=== PATIENT | female | born 1970 | race African-American/Black ===

== ENCOUNTER 2020-12-15 20:20 | Inpatient (IN) | payer BC ==
[2020-12-15] MEDS ORDERED: SODIUM CHLORIDE 1,000 ML ONE (20:45)
[2020-12-15] MEDS ORDERED: morphine CARPU-JECT 4 MG/1 ML DISP.SYRIN IVPUSH ONE (20:45)
[2020-12-15] MEDS ORDERED: ONDANSETRON 4 MG/2 ML VIAL IVPB ONE (20:45)
[2020-12-15] MEDS ORDERED: ONDANSETRON 4 MG/2 ML VIAL ONE (20:55)
[2020-12-15] MEDS ORDERED: morphine SULFATE 4 MG/ML VIAL ONE (20:55)
[2020-12-15 21:31] LABS: ALBUMIN 3.7 g/dl (3.4-5.0); BILIRUBIN,TOTAL 0.6 mg/dl (0.2-1); CALCIUM 10.1 mg/dl (8.5-10); CREATININE 0.8 mg/dl (0.55-1.3); TOT PROT 8.2 g/dl (6.4-8.2)
[2020-12-15] MEDS ORDERED: KCL 10 MEQ IVPB 20 MEQ/200 ML INFUS.BAG IVPB ONE (21:34)
[2020-12-15 21:44] LABS: HEMATOCRIT 30.7 % (32.4-45.2); HEMOGLOBIN 9.5 GM/dl (10.7-15.3); MCH 21.1 pg (25.7-33.7); MCHC 30.8 g/dl (32.0-36.0); MEAN CELL VOLUME 68.5 fl (80-96); MEAN PLT VOLUME 7.8 fl (7.5-11.1); PLATELET COUNT 251 10^3/uL (134-434); RBC 4.49 M/mm3 (3.60-5.2); RDW 15.6 % (11.6-15.6); WHITE BLOOD COUNT 8.5 K/mm3 (4.0-10.8)
[2020-12-15] MEDS: KCL 10 MEQ IVPB 10 MEQ/100 ML INFUS.BAG IVPB SCH ×3 (21:45→23:56)
[2020-12-15 21:46] LABS: ADD RBC MORPHOLOGY YES
[2020-12-15 21:51] LABS: EPITHELIAL CELLS MODERATE /hpf
[2020-12-15 22:23] LABS: ANISOCYTOSIS 1+; PLATELET ESTIMATE ADEQUATE
[2020-12-15 22:27] LABS: LIPASE 113 U/L (73-393)
[2020-12-15] MEDS ORDERED: KCL 10 MEQ IVPB 10 MEQ/100 ML INFUS.BAG IVPB ONE (22:51)
[2020-12-15] MEDS ORDERED: HYDROmorphone HCL CARPU-JECT 1 MG/1 ML DISP.SYRIN IVPUSH ONE (23:40)
[2020-12-15] MEDS ORDERED: HYDROmorphone HCL/PF 1 MG/ML VIAL ONE (23:42)
[2020-12-16] MEDS: ONDANSETRON 4 MG/2 ML VIAL IVPUSH PRN ×2 (03:13→09:31)
[2020-12-16] MEDS: morphine SULFATE 4 MG/ML VIAL IVPUSH PRN ×3 (03:26→20:48)
[2020-12-16 03:55] LABS: BLOOD UREA NITROGEN 17.2 mg/dL (7-18); CALCIUM 8.4 mg/dL (8.5-10.1); CREATININE 0.5 mg/dL (0.55-1.3)
[2020-12-16] MEDS ORDERED: DEXTROSE 5%-0.45% SALINE 1,000 ML IV SCH (06:00)
[2020-12-16 09:13] LABS: ALBUMIN 2.9 g/dl (3.4-5.0); BILIRUBIN,TOTAL 0.4 mg/dl (0.2-1); CALCIUM 8.4 mg/dl (8.5-10); CREATININE 0.5 mg/dl (0.55-1.3); MAGNESIUM 1.7 mg/dL (1.8-2.4); TOT PROT 6.6 g/dl (6.4-8.2)
[2020-12-16 09:17] LABS: BASO % 0.7 % (0-2.0); HEMATOCRIT 29.5 % (32.4-45.2); LYMPH % 11.3 % (8-40); MCH 21.3 pg (25.7-33.7); MCHC 30.5 g/dl (32.0-36.0); MEAN PLT VOLUME 8.2 fl (7.5-11.1); MONO % 9.9 % (3.8-10.2); NEUT % 76.1 % (42.8-82.8); PLATELET COUNT 248 10^3/uL (134-434); RBC 4.22 M/mm3 (3.60-5.2); RDW 15.4 % (11.6-15.6); WHITE BLOOD COUNT 7.9 K/mm3 (4.0-10.8)
[2020-12-16] MEDS ORDERED: MAGNESIUM SULF 50% (8.12 MEQ/2 ML-1 GM VIAL) IVPB ONE (10:08)
[2020-12-16] MEDS ORDERED: KCL 10 MEQ IVPB 10 MEQ/100 ML INFUS.BAG IVPB SCH (11:45)
[2020-12-16] MEDS ORDERED: ROCURONIUM BROMIDE 50 MG/5 ML SYRINGE ONE (11:47)
[2020-12-16] MEDS ORDERED: LIDOCAINE HCL/PF 2% SDV 5ML VIAL ONE (11:47)
[2020-12-16] MEDS ORDERED: PROPOFOL 20 ML ONE (11:47)
[2020-12-16] MEDS ORDERED: MIDAZOLAM HCL 2 MG/2 ML SINGLE DOSE VIAL ONE (11:48)
[2020-12-16] MEDS ORDERED: ONDANSETRON 4 MG/2 ML VIAL IVPUSH PRN ×2 (12:12→15:50)
[2020-12-16] MEDS ORDERED: HYDROmorphone HCL CARPU-JECT 1 MG/1 ML DISP.SYRIN IVPUSH PRN (12:12)
[2020-12-16] MEDS ORDERED: PROMETHAZINE HCL 25 MG/1 ML VIAL IVPUSH PRN (12:12)
[2020-12-16] MEDS ORDERED: HYDROmorphone HCl 2 MG/ML VIAL IVPUSH PRN (12:12)
[2020-12-16] MEDS ORDERED: LACTATED RINGERS SOLUTION 1,000 ML IV SCH (12:15)
[2020-12-16] MEDS ORDERED: ceFAZolin SODIUM 1 GM VIAL IVPB ONE (13:42)
[2020-12-16] MEDS ORDERED: ceFAZolin SODIUM 1 GM VIAL ONE (13:44)
[2020-12-16] MEDS ORDERED: ONDANSETRON 4 MG/2 ML VIAL ONE (13:44)
[2020-12-16] MEDS ORDERED: DEXAMETHASONE SOD PHOSPHATE 4 MG/1 ML VIAL ONE (13:44)
[2020-12-16] MEDS ORDERED: ACETAMINOPHEN INJECTION 100 ML IVPB ONE (13:54)
[2020-12-16] MEDS ORDERED: LABETALOL HCL 5 MG/1 ML (100MG/20 ML VIAL) ONE (13:57)
[2020-12-16] MEDS ORDERED: GLYCOPYRROLATE 0.2 MG/1 ML VIAL ONE ×3 (14:12)
[2020-12-16] MEDS ORDERED: NEOSTIGMINE METHYLSULFATE 0.5 MG/1 ML - 10 ML MDV ONE (14:12)
[2020-12-16] MEDS ORDERED: METHYLENE BLUE 50 MG/10 ML AMPUL ONE (15:17)
[2020-12-16] MEDS ORDERED: BUPIVACAINE HCL/PF 0.25% (2.5MG/ML) 10 ML VIAL ONE (15:38)
[2020-12-16] MEDS ORDERED: BUPIVACAINE HCL/PF 0.25% (2.5MG/ML) 10 ML VIAL IJ ONE (15:43)
[2020-12-16] MEDS ORDERED: ePHEDrine SULFATE 50 MG/1 ML AMPULE ONE (16:08)
[2020-12-16] MEDS ORDERED: PHENYLEPHRINE HCL 10 MG/1 ML SINGLE DOSE VIAL ONE (16:08)
[2020-12-16 16:24] LABS: HEMOGLOBIN 8.7 GM/dL (10.7-15.3); MEAN CELL VOLUME 67.7 fl (80-96); MEAN PLT VOLUME 7.2 fl (7.5-11.1); PLATELET COUNT 227 10^3/uL (134-434); RBC 4.13 M/mm3 (3.60-5.2); RDW 16.4 % (11.6-15.6); WHITE BLOOD COUNT 8.2 K/mm3 (4.0-10.0)
[2020-12-16] MEDS ORDERED: HYDROmorphone HCl 2 MG/ML VIAL ONE (16:24)
[2020-12-16 16:37] LABS: BLOOD UREA NITROGEN 12.7 mg/dL (7-18); CALCIUM 8.1 mg/dL (8.5-10.1)
[2020-12-16 16:38] LABS: ALBUMIN 2.5 g/dl (3.4-5.0)
[2020-12-16 16:41] LABS: CREATININE 0.5 mg/dL (0.55-1.3)
[2020-12-16 16:42] LABS: BILIRUBIN,TOTAL 0.3 mg/dL (0.2-1); TOT PROT 6.4 g/dl (6.4-8.2)
[2020-12-16] MEDS: SODIUM CHLORIDE 1,000 ML IV SCH (17:32)
[2020-12-16] MEDS: FAMOTIDINE 20 MG/50 ML IVPB 20 MG/50 ML MG IVPB SCH (21:38)
[2020-12-16] MEDS ORDERED: ENOXAPARIN NA (PORCINE) 40 MG/0.4 ML DISP.SYRIN SQ SCH (22:00)
[2020-12-17] MEDS: morphine SULFATE 4 MG/ML VIAL IVPUSH PRN (01:07)
[2020-12-17] MEDS: ACETAMINOPHEN 1000 MG/100 ML VIAL IVPB PRN ×4 (04:11→22:08)
[2020-12-17] MEDS: SODIUM CHLORIDE 1,000 ML IV SCH (04:13)
[2020-12-17 09:04] LABS: BASO % 0.6 % (0-2.0); EOS % 0.8 % (0-4.5); HEMATOCRIT 23.7 % (32.4-45.2); HEMOGLOBIN 7.4 GM/dL (10.7-15.3); LYMPH % 16.4 % (8-40); MCHC 31.3 g/dl (32.0-36.0); MEAN PLT VOLUME 7.3 fl (7.5-11.1); MONO % 9.7 % (3.8-10.2); NEUT % 72.5 % (42.8-82.8); PLATELET COUNT 195 10^3/uL (134-434); RBC 3.53 M/mm3 (3.60-5.2); RDW 16.5 % (11.6-15.6); WHITE BLOOD COUNT 6.4 K/mm3 (4.0-10.0)
[2020-12-17] MEDS: FAMOTIDINE 20 MG/50 ML IVPB 20 MG/50 ML MG IVPB SCH ×2 (10:18→22:09)
[2020-12-17 10:33] LABS: ALBUMIN 1.9 g/dl (3.4-5.0); BILIRUBIN,TOTAL 0.4 mg/dL (0.2-1); BLOOD UREA NITROGEN 7.5 mg/dL (7-18); CALCIUM 7.6 mg/dL (8.5-10.1); CREATININE 0.4 mg/dL (0.55-1.3); MAGNESIUM 1.7 mg/dL (1.8-2.4); TOT PROT 5.5 g/dl (6.4-8.2)
[2020-12-17] MEDS ORDERED: POTASSIUM CHLORIDE ORAL LIQUID 20 MEQ/15 ML PO ONE (10:40)
[2020-12-17] MEDS ORDERED: MAGNESIUM 1GM/D5W 100ML - 100 ML IVPB IVPB ONE (10:50)
[2020-12-17] MEDS ORDERED: MAGNESIUM SULF 50% (8.12 MEQ/2 ML-1 GM VIAL) IVPB ONE (12:26)
[2020-12-17] MEDS ORDERED: IRON SUCROSE INJECTION 200 MG in SODIUM CHLORIDE 90 ML IVPB ONE (14:00)
[2020-12-17] MEDS: HEPARIN NA (PORCINE) 5,000 UNITS/ML 1ML VIAL SQ SCH ×2 (15:11→22:09)
[2020-12-18] MEDS: morphine SULFATE 4 MG/ML VIAL IVPUSH PRN ×2 (03:22→09:30)
[2020-12-18] MEDS: HEPARIN NA (PORCINE) 5,000 UNITS/ML 1ML VIAL SQ SCH ×2 (05:49→13:44)
[2020-12-18 08:50] LABS: BASO % 0.7 % (0-2.0); EOS % 3.7 % (0-4.5); HEMATOCRIT 23.6 % (32.4-45.2); HEMOGLOBIN 7.4 GM/dL (10.7-15.3); LYMPH % 23.4 % (8-40); MCHC 31.6 g/dl (32.0-36.0); MEAN CELL VOLUME 66.6 fl (80-96); MEAN PLT VOLUME 7.1 fl (7.5-11.1); MONO % 10.1 % (3.8-10.2); NEUT % 62.1 % (42.8-82.8); PLATELET COUNT 208 10^3/uL (134-434); RBC 3.54 M/mm3 (3.60-5.2); RDW 16.5 % (11.6-15.6); WHITE BLOOD COUNT 4.9 K/mm3 (4.0-10.0)
[2020-12-18] MEDS: FAMOTIDINE 20 MG/50 ML IVPB 20 MG/50 ML MG IVPB SCH (09:11)
[2020-12-18 09:15] LABS: BLOOD UREA NITROGEN 4.8 mg/dL (7-18); CALCIUM 8.2 mg/dL (8.5-10.1)
[2020-12-18 09:18] LABS: CREATININE 0.4 mg/dL (0.55-1.3); PHOSPHOROUS 1.7 mg/dL (2.5-4.9)
[2020-12-18 09:20] LABS: BILIRUBIN,TOTAL 0.1 mg/dL (0.2-1); TOT PROT 5.8 g/dl (6.4-8.2)
[2020-12-18] MEDS ORDERED: POTASSIUM PHOSPHATE 15 MM in DEXTROSE 5%-WATER - 250 ML IVPB ONE (11:00)
[2020-12-18 14:16] VITALS: TEMP 98.2
[2020-12-18 14:57] VITALS: BP 123/82; PULSE 96
[2020-12-18 17:55] LABS: CALCIUM 8.3 mg/dL (8.5-10.1)
[2020-12-18 17:56] LABS: BLOOD UREA NITROGEN 5.4 mg/dL (7-18)
[2020-12-18 17:59] LABS: CREATININE 0.5 mg/dL (0.55-1.3); PHOSPHOROUS 2.6 mg/dL (2.5-4.9)
[2020-12-19 11:46] VITALS: BMI 26.6
== END 2020-12-18 19:17 | disposition home or self-care (01) | DRG 909 ==
LOC: FER 20:20 → FM/S 23:35 → J6S 12-16 12:21 → OBSVTOIN 12-16 13:51
PROVIDERS: ADMIT Internal Medicine; ATTEND Internal Medicine
PROC: 0DNW4ZZ Release Peritoneum, Percutaneous Endoscopic Approach (ICD-10-PCS; 2020-12-16)
PROC: 0DJ04ZZ Inspection of Upper Intestinal Tract, Percutaneous Endoscopic Approach (ICD-10-PCS; 2020-12-16)
PROC: 0DP64CZ Removal of Extraluminal Device from Stomach, Percutaneous Endoscopic Approach (ICD-10-PCS; principal; 2020-12-16 12:00)
DX: T85.518A Breakdown (mechanical) of other gastrointestinal prosthetic devices, implants and grafts, initial encounter (principal); E87.6 Hypokalemia; I10 Essential (primary) hypertension; D50.0 Iron deficiency anemia secondary to blood loss (chronic); K66.0 Peritoneal adhesions (postprocedural) (postinfection); E88.09 Other disorders of plasma-protein metabolism, not elsewhere classified; Z87.11 Personal history of peptic ulcer disease; Z98.84 Bariatric surgery status; Z46.51 Encounter for fitting and adjustment of gastric lap band
CPT/HCPCS: 36415; 74177-TC; 74240-TC-FY; 80048; 80053; 81003; 81015; 82550; 82607; 82728; 83036; 83540; 83550; 83605; 83690; 83735; 84100; 84484; 84703; 85025; 85027; 88300-TC; 93005; 94010; 94760; 99285-25; C9803; G0378; J0131; J1644; J1756; Q9967; Q9968; U0003; U0005